=== PATIENT | female | born 2000 | race Two or more races ===

== ENCOUNTER 2024-11-19 17:59 | Emergency (ER) | payer MEDICAID ==
[~2024-11-19] VITALS: Ht 165.1 cm; Wt 88.5 kg
[2024-11-19 18:12] VITALS: BP 124/70; TEMP 98.1; O2SAT 100
[2024-11-19] MEDS ORDERED: KETOROLAC TROMETHAMINE 15 MG/ML VIAL ONE (18:35)
[2024-11-19] MEDS: KETOROLAC TROMETHAMINE 15 MG/ML VIAL IM ONE (18:38)
[2024-11-19 18:57] LABS: PREGNANCY TEST URINE QUAL NEGATIVE (NEGATIVE)
[2024-11-19] MEDS ORDERED: KETO10TA2 PO (19:40)
== END 2024-11-19 19:53 | disposition home or self-care (01) ==
LOC: ER 18:04
DX: B34.9 Viral infection, unspecified (principal); Z20.822 Contact with and (suspected) exposure to COVID-19
CPT/HCPCS: 99283; 87426; 96372; 87804 ×2; 84703; J1885